=== PATIENT | female | born 1975 | race Caucasian/White ===

== ENCOUNTER 2016-05-13 18:18 | Inpatient (IN) | payer SELFPAY ==
[2016-05-13] VITALS (7 sets, daily range): BP systolic 103–135; BP diastolic 55–89
[~2016-05-13] VITALS: Ht 172.7 cm; Wt 72.6 kg
[~2016-05-13 18:18] MED LIST: Motrin PO
[2016-05-13] MEDS ORDERED: IBUPROFEN800 MG PO (23:32)
[2016-05-14 07:08] VITALS: BP 109/64
[2016-05-14 15:20] VITALS: BP 111/64
== END 2016-05-14 22:20 | disposition home or self-care (01) | DRG 775 ==
LOC: LDRP-OP 18:18 → 2WEST 18:19
DX: O87.8 Other venous complications in the puerperium (principal); O09.529 Supervision of elderly multigravida, unspecified trimester; Z3A.40 40 weeks gestation of pregnancy; O09.33 Supervision of pregnancy with insufficient antenatal care, third trimester; O22.93 Venous complication in pregnancy, unspecified, third trimester; Z37.0 Single live birth
CPT/HCPCS: J2590